=== PATIENT | female | born 1960 | race Caucasian/White ===

== ENCOUNTER → 2017-05-21 | Outpatient (CLI) | payer OTHER ==
[~2017-05-21] MED LIST: CELEBREX200 MG PO; CLARITIN; DIAZEPAM10 MG PO; ICY HOT1 EAC1 TP; KLONOPIN1 MG PO; NITROSTAT0.4 MG SL; OXYCODONE-ACET1 EACH PO; PRILOSEC20 MG PO; SYMBICORT60 INHALAT IH; VENTOLIN HFA18 GM IH; ZOCOR40 MG PO
== END | disposition home or self-care (01) ==
LOC: CDC 11:58
DX: G56.01 Carpal tunnel syndrome, right upper limb (principal); M65.331 Trigger finger, right middle finger; M65.321 Trigger finger, right index finger
CPT/HCPCS: 93000

== ENCOUNTER → 2017-07-05 | Outpatient (CLI) | payer OTHER ==
[~2017-07-05] MED LIST changes: +ADDERALL20 MG PO; +CELEBREX100 MG PO; +CYMBALTA60 MG PO; +PAXIL20 MG PO
== END | disposition home or self-care (01) ==
LOC: AMB 06:49
DX: Z12.11 Encounter for screening for malignant neoplasm of colon (principal); D12.5 Benign neoplasm of sigmoid colon; D12.2 Benign neoplasm of ascending colon; K57.30 Diverticulosis of large intestine without perforation or abscess without bleeding; F17.200 Nicotine dependence, unspecified, uncomplicated; Z80.3 Family history of malignant neoplasm of breast; F90.9 Attention-deficit hyperactivity disorder, unspecified type; G89.29 Other chronic pain; F32.9 Major depressive disorder, single episode, unspecified; E78.5 Hyperlipidemia, unspecified; J45.20 Mild intermittent asthma, uncomplicated; M79.7 Fibromyalgia; M54.2 Cervicalgia; M25.572 Pain in left ankle and joints of left foot; Z79.891 Long term (current) use of opiate analgesic; Z88.1 Allergy status to other antibiotic agents; Z91.040 Latex allergy status
CPT/HCPCS: 88305; J2250; J3010

== ENCOUNTER → 2017-09-23 | Outpatient (CLI) | payer OTHER | END | disposition home or self-care (01) | LOC: NUC 07:52 | DX: E05.20 Thyrotoxicosis with toxic multinodular goiter without thyrotoxic crisis or storm (principal) | CPT/HCPCS: 78014; 78999; A9516 ==